=== PATIENT | female | born 1945 | race Caucasian/White ===

== ENCOUNTER 2024-02-22 12:55 | Emergency (ER) | payer MEDICARE, SELFPAY ==
--- NOTE | ~2024-02-22 | XR_ITS ---
EXAMINATION: XR CHEST CLINICAL INFORMATION: Cough COMPARISON: None available. TECHNIQUE: Frontal view of the chest was obtained. FINDINGS: Lungs are well expanded and clear. No evidence of alveolar or interstitial disease. No mass or pleural effusion. Cardiac silhouette has normal size and contour. Pulmonary vascular pattern is normal. Small foci of calcium deposition in the region of the distal left supraspinatus/infraspinatus tendons is consistent with calcium hydroxyapatite deposition. XR/XR chest 1V IMPRESSION: No evidence of pneumonia. No acute cardiopulmonary disease.
[2024-02-22 13:15] VITALS: BP 103/36; PULSE 94; RESP 18; TEMP 38; O2SAT 94; BMI 27.1
--- NOTE | 2024-02-22 13:21 | PC.NURSE ---
From [place] with complaints of cough for the last few days, was noted to have a temp today and was started on doxy but was not given a dose before being sent to ED . Patient alert and responsive but with confusion. Denies pain or discomfort. 1:1 from [place] at bedside
[2024-02-22 14:30] LABS: MANUAL DIFF FLAG NO
[2024-02-22 14:30] LABS: Influenza A PCR NEGATIVE (Negative); Influenza B PCR NEGATIVE (Negative); Resp Syncy Virus RNA Qual PCR NEGATIVE (Negative); SARS COV2 PCR INHOUSE NEGATIVE (Negative)
--- NOTE | 2024-02-22 14:30 | ED.GENADULT ---
[facility] - General Adult General Chief complaint: General Medical Stated complaint: COUGH,FEVER/99 PER EMS Time Seen by Provider: 02/22/24 13:04 Source: patient Mode of arrival: EMS History of Present Illness ED Provider: Dr Valladares [facility] narrative: 79-year-old female who presents from a long-term care facility and has reported fever and cough for 2 days, patient denies pain anywhere at this time. Related Data Previous Rx's ?Medication ?Instructions ?Recorded cephalexin 500 mg capsule 500 mg PO BID 5 days #10 caps 02/22/24 Allergies Allergy/AdvReac Type Severity Reaction Status Date / Time chlorpromazine Allergy Unknown Verified 02/22/24 13:16 [From Thorazine] Review of Systems Review of Systems: Pertinent positives and negatives as stated in [facility] Past Medical History Source: nursing notes reviewed Social History Social History Alcohol intake: former Smoked in Last 30 Days: No Use of substances other than those prescribed or required for medical reasons: No Advance Directives: No Advance Directives Information Provided: Yes Physical Exam ED Vital Signs: Vital Signs - 24 hr 02/22/24 13:15 02/22/24 15:39 Temperature 100.4 F Pulse Rate 94 92 Respiratory Rate 18 30 H Blood Pressure 103/36 L 127/59 L Pulse Oximetry 94 99 Oxygen Delivery Method Room Air Room Air BMI result Body Mass Index 27.1 VITAL SIGNS: Reviewed. GENERAL: Well developed, well nourished, in no acute distress. HEAD: Normocephalic/atraumatic EYES: PERRLA, EOMI EARS: Ext canals without abnormality, TMs non-bulging and non-erythematous NOSE: Nares patent bilateral OROPHARYNX: no oral lesions noted, posterior pharynx clear and non-erythematous without noted tonsillar enlargement/erythema/exudates NECK: Supple, no adenopathy LUNGS: Decreased bibasilar with expiratory wheeze and scattered rhonchi. SpO2<94> CARDIOVASCULAR: Regular rate and rhythm without noted murmurs, no JVD or lower extremity edema. ABDOMEN: Soft, non-tender, non-distended with bowel sounds. MUSCULOSKELETAL: No tenderness, deformities, or effusions noted on gross inspection. EXTREMITIES: No cyanosis, clubbing or edema. SKIN: Inspection of the skin reveals no rashes NEUROLOGIC: Alert and oriented x 4. Strength and sensation to light touch were grossly intact x 4. Medical Decision Making Medical Decision Making [facility] Narrative: 1320: 79-year-old female with history and clinical presentation, DDX: Pneumonia, viral illness I reviewed and interpreted all investigations hematologic indices demonstrate a subtle leukocytosis, no anemia or thrombocytopenia. Chemistry indices negative for CHASE or electrolyte/liver enzyme derangements, however urinalysis with significant leukocyte esterase/WBCs and bacteria suggesting underlying urinary tract infection for which patient will receive initial antibiotics here in the emergency room and then discharged on remaining course. Viral testing is negative for influenza/RSV/COVID-19. Chest x-ray negative for infiltrate or venous congestion. My interpretation is that patient has a cough of unclear etiology could be viral but is testing negative for influenza and COVID-19 currently, she will receive initial antibiotics and be discharged home. Differential Diagnosis Differential Diagnoses: The differential diagnosis associated with the presentation includes Please see the discussion above Admission/Observation Consideration of admission/observation: Escalation of care including admission/observation considered Please see the discussion above Lab Data [facility] Lab Attestation statement: I reviewed the patient's lab results. Please see the discussion above 02/22/24 14:25 02/22/24 14:25 Labs: Lab Results 02/22/24 02/22/24 02/22/24 Range/Units 13:48 14:25 15:43 WBC 11.2 H (4.8-10.8) X10*3/uL RBC 4.20 (4.20-5.50) X10*6/uL Hgb 13.5 (12.0-16.0) g/dl Hct 40.8 (37.0-47.0) % MCV 97.1 (80.0-98.0) fL MCH 32.1 (27.0-33.0) pg MCHC 33.1 (31.0-35.0) g/dl RDW 11.9 (11.0-16.0) % Plt Count 214 (160-400) X10*3/uL MPV 8.8 L (9.4-12.3) fL Immature Gran % (Auto) 0.4 (0.0-0.4) % Neut % (Auto) 77.1 H (45-73) % Lymph % (Auto) 8.9 L (20-40) % [place] % (Auto) 8.8 (2-11) % Eos % (Auto) 4.4 H (0-4) % Baso % (Auto) 0.4 (0-2) % Lymph # (Auto) 1.0 L (1.2-4.9) X10*3/uL [place] # (Auto) 1.0 (0.1-1.2) X10*3/uL Eos # (Auto) 0.5 H (0.0-0.4) X10*3/uL Baso # (Auto) 0.0 (0.0-0.2) X10*3/uL Abs Immat Gran (auto) 0.05 H (0.00-0.03) X10*3/uL Absolute Neuts (auto) 8.7 H (2.0-8.3) x10*3/uL Absolute Nucleated RBC 0.000 (0.0-0.012) X10*3/uL Nucleated RBC % (auto) 0.0 (0.0-0.2) /100WBC Sodium 140 (135-145) mmol/L Potassium 4.8 (3.3-5.1) mmol/L Chloride 106 (96-108) mmol/L Carbon Dioxide 25 (22-29) mmol/L Anion Gap 14 (12-20) BUN 33 H (9-16) mg/dL Creatinine 1.24 (0.5-1.4) mg/dL Estim Creat Clear Calc 37.7 Estimated GFR 42 Random Glucose 78 (60-115) mg/dL Lactic Acid 0.9 (0.5-2.0) mmol/L Calcium 10.7 H (8.4-10.2) mg/dL Total Bilirubin 0.5 (0.0-1.0) mg/dL AST 19 (5-31) U/L ALT 17 (0-31) U/L Alkaline Phosphatase 93 (39-117) U/L Total Protein 7.3 (6.5-8.0) g/dL Albumin 4.2 (3.5-5.0) g/dL Urine Color Yellow Urine Appearance Cloudy Urine pH 7.5 (5.0-9.0) Ur Specific [place] 1.010 (1.005-1.025) Urine Protein Negative (Neg-Trace) mg/dL Urine Glucose (UA) Negative (Negative) mg/dL Urine Ketones Negative (Negative) mg/dL Urine Blood Negative (Negative) Urine Nitrite Negative (Negative) Ur Leukocyte Esterase Large (3+) H (Negative) Urine RBC 0-2 (0-2) /HPF Urine WBC 21-50 H (0-5) /HPF Ur Squamous Epith Cells 3-5 (0-2) /HPF Urine Bacteria 4+ (None Seen) Hyaline Casts 0-2 (0-2) /LPF Influenza Type A (PCR) NEGATIVE (Negative) Influenza Type B (PCR) NEGATIVE (Negative) RSV RNA Qual (PCR) NEGATIVE (Negative) SARS-CoV-2 RNA (RT-PCR) NEGATIVE (Negative) Radiology Impression Discussion of test interpretation with radiology: I have reviewed the radiologist's reading. Radiologist Impression: Please see the discussion above External Record Review External record reviewed: Outpatient record, Prior outpatient labs and Prior outpatient radiology Critical Care Time Critical Care Time Critical Care Time: Yes Total Critical Care Time: 30 Attestation: I personally attest to this time spent taking care of the patient. Discharge Plan Discharge Clinical Impression: Urinary tract infection Patient Disposition: Xfer Other Instructions: Urinary Tract Infection in Older Adults (ED) Additional Instructions: 1. Resume all home medications as prescribed. 2. Complete the entire course of antibiotics as prescribed. 3. Follow-up with the facility supervising physician and further outpatient management. Return to the ER for any worsening symptoms. Prescriptions: New cephalexin 500 mg capsule 500 mg PO BID 5 Days Qty: 10 0RF Print Language: Occitan
[2024-02-22 14:31] LABS: Basophils Percent Auto 0.4 % (0-2); Eosinophils Absolute Auto 0.5 X10*3/uL (0.0-0.4); Eosinophils Percent Auto 4.4 % (0-4); Hematocrit 40.8 % (37.0-47.0); Hemoglobin 13.5 g/dl (12.0-16.0); Imm Gran Abs Auto 0.05 X10*3/uL (0.00-0.03); Imm Gran Pct Auto 0.4 % (0.0-0.4); Lymphocytes Percent Auto 8.9 % (20-40); Mean Corpuscular HGB Conc 33.1 g/dl (31.0-35.0); Mean Corpuscular Hemoglobin 32.1 pg (27.0-33.0); Mean Corpuscular Volume 97.1 fL (80.0-98.0); Mean Platelet Volume 8.8 fL (9.4-12.3); Monocytes Percent Auto 8.8 % (2-11); Neutrophils Absolute Auto 8.7 x10*3/uL (2.0-8.3); Neutrophils Percent Auto 77.1 % (45-73); Platelet Count 214 X10*3/uL (160-400); Red Cell Distribution Width 11.9 % (11.0-16.0); White Blood Count 11.2 X10*3/uL (4.8-10.8)
--- NOTE | 2024-02-22 14:32 | PC.NURSE ---
x2 techs attempted to draw patients labs unsuccessfully. Labs obtained by this RN, patient stating she is not allowing another poke for last set of cultures , provider aware stating one set is okay at this time
[2024-02-22 14:44] LABS: Lactic Acid 0.9 mmol/L (0.5-2.0)
[2024-02-22 14:50] LABS: Alanine Aminotransferase 17 U/L (0-31); Albumin Level 4.2 g/dL (3.5-5.0); Alkaline Phosphatase 93 U/L (39-117); Anion Gap 14 (12-20); Aspartate Amino Transferase 19 U/L (5-31); Bilirubin Total 0.5 mg/dL (0.0-1.0); Blood Urea Nitrogen 33 mg/dL (9-16); Calcium 10.7 mg/dL (8.4-10.2); Carbon Dioxide 25 mmol/L (22-29); Chloride 106 mmol/L (96-108); Creatinine Clr Calc Pharmacy 37.7; Estimated Glomerular Filt Rate 42; Glucose Random 78 mg/dL (60-115); Potassium 4.8 mmol/L (3.3-5.1); Sodium 140 mmol/L (135-145); Total Protein 7.3 g/dL (6.5-8.0)
[2024-02-22 15:39] VITALS: BP 127/59; PULSE 92; RESP 30; O2SAT 99
[2024-02-22 15:53] LABS: Appearance Urine Cloudy; Color Urine Yellow; Glucose Urine UA Negative (Negative); Leukocyte Esterase Urine Large (3+) (Negative); Nitrite Urine Negative (Negative); PH 7.5 (5.0-9.0); UMIC TRIGGER UACC YES; Urine Blood Negative (Negative); Urine Ketones Negative (Negative); Urine Protein Negative (Neg-Trace)
[2024-02-22 15:56] LABS: Bacteria Urine 4+ (None Seen); Hyaline Casts Urine 0-2 /LPF (0-2); RBC Urine 0-2 /HPF (0-2); UACC Culture Trigger YES; WBC Urine 21-50 /HPF (0-5)
[2024-02-22] MEDS: cephALEXin 500 MG CAPSULE PO (16:53)
--- NOTE | 2024-02-22 16:54 | PC.NURSE ---
Script for abt given to staff from [facility] [facility] to bring back to facility to be filled , [place] [employer] supervisor to book transport
[2024-02-22 17:12] LABS: B Type Natriuretic Peptide 13 pg/mL (<100)
[2024-02-22 17:54] VITALS: BP 127/56; PULSE 80; RESP 18; TEMP 37.2; O2SAT 99
== END 2024-02-22 17:55 | disposition other institution (70) ==
PROVIDERS: Emergency Provider Student in an Organized Health Care Education/Training Program
DX: N39.0 Urinary tract infection, site not specified (principal); R05.9 Cough, unspecified; R50.9 Fever, unspecified; Z03.818 Encounter for observation for suspected exposure to other biological agents ruled out
CPT/HCPCS: 0241U; 36415; 71045; 80053; 81001; 83605; 83880; 85025; 87040; 87086; 87088; 99283; 99284